=== PATIENT | male | born 1960 | race Native Hawaiian/Other Pacific Islander ===

== ENCOUNTER 2018-09-18 15:10 | Outpatient (CLI) | payer OTHER ==
--- NOTE | 2018-09-18 15:55 | ULT ---
Venous duplex sonogram left upper extremity HISTORY: Left arm pain and edema. FINDINGS: The left internal jugular and subclavian veins were evaluated along with the subclavian, Br achial, axillary, cephalic, and basilic veins. There is good color and spectral Doppler flow. No internal thrombus. IMPRESSION: No sonographic evidence of DVT within the left upper extremity.
== END 2018-09-18 15:11 | disposition home or self-care (01) ==
LOC: SCSULT 15:10
PROVIDERS: ATTEND Family Medicine
DX: R60.0 Localized edema (principal)

== ENCOUNTER 2018-10-15 07:55 | Outpatient (CLI) | payer OTHER ==
--- NOTE | 2018-10-15 10:54 | MRI ---
MRI OF THE LEFT UPPER EXTREMITY WITH AND WITHOUT CONTRAST: INDICATION: A 58-year-old male with left upper extremity swelling. TECHNIQUE: Multiplanar, multisequence MRI images were obtained of the left arm with and without contrast. 20 cc of MultiHance was utilized for the exam. Comparisons are made with a venous ultrasound of left uppe r extremity 09/18/2018. FINDINGS: As seen on the left upper extremity Doppler venous ultrasound, there is extensive subcutaneous edema of the left upper torso as well as the left upper extremity. There is some mild enhancement of the s kin and subcutaneous tissues indicative of some underlying inflammation. This can be seen in longsta nding lymphedema, but it can also be seen with cellulitis. Some mild muscular edema is seen within t he region of the teres major as well as portions of the triceps, deltoid, and rotator cuff musculatur e. There is also some mild edema present within the latissimus dorsi. No visible adenopathy is evid ent within the left axillary fossa. No definite mass is noted along the course of the left upper ext remity vasculature. No definite caliber change is evident involving the subclavian, left axillary ve ins to suggest extrinsic compression. The bone marrow signal intensity of the left humerus and left shoulder girdle appears within normal limits. IMPRESSION: Nonspecific subcutaneous edema seen diffusely involving the distal left arm as well as portions of th e left upper torso. There is some mild enhancement which can be seen with longstanding lymphedema bu t also cellulitis. Central venous obstructing process cannot be entirely excluded. The patient may benefit from further evaluation with a CT venogram of the left shoulder to evaluate for central venou s stenosis. Conventional venogram may also be helpful to exclude the presence of a central venous ob struction. Would recommend also correlation with any symptoms and signs of infection of the left upp er extremity. POS: CET
== END 2018-10-15 07:56 | disposition home or self-care (01) ==
LOC: MRI 07:55
PROVIDERS: ATTEND Family Medicine
DX: C22.0 Liver cell carcinoma (principal); R60.0 Localized edema; I89.0 Lymphedema, not elsewhere classified

== ENCOUNTER 2019-01-12 15:33 | Inpatient (IN) | payer OTHER ==
[2019-01-12 16:42] VITALS: BMI 28.8
[2019-01-12] MEDS ORDERED: traMADol HCl 50 MG TAB PO PRN (18:00)
[2019-01-12] MEDS ORDERED: B2 PO SCH (18:00)
[2019-01-12] MEDS ORDERED: B12 PO SCH (18:00)
[2019-01-12] MEDS ORDERED: VIT D3 PO SCH (18:00)
[2019-01-12] MEDS ORDERED: HumuLIN 70/30 (300 UNITS/3 ML VIAL) SC PRN (18:00)
[2019-01-12] MEDS ORDERED: B6 PO SCH (18:00)
[2019-01-12] MEDS ORDERED: FOLIC ACID PO SCH (18:00)
[2019-01-12 18:37] LABS: #Eosinphils 0.1 thou/uL (0.0-0.7); #Lymphocytes 1.3 thou/uL (1.20-3.40); #Monocytes 0.5 thou/uL (0.11-0.59); #Neutrophils 2.5 thou/uL (1.40-6.50); %Basophils 0.8 % (0.0-1.0); %Eosinophils 1.3 % (0.0-10.0); %Lymphocytes 29.8 % (21.0-51.0); %Monocytes 10.4 % (0.0-10.0); %Neutrophils 57.7 % (42.0-75.0); Hemoglobin 9.4 g/dL (14.0-18.0); Mean Corpuscular HGB CONC 34.3 g/dL (32.0-36.0); Mean Corpuscular Hemoglobin 29.2 pg (27.0-31.0); Mean Corpuscular Volume 85.2 fL (78.0-98.0); Mean Platelet Volume 6.6 fL (7.4-10.4); Platelet Count 227 thou/uL (130-400); RBC Distribution Width 12.3 % (11.5-14.5); White Blood Cell (WBC) Count 4.4 thou/uL (4.8-10.8)
[2019-01-12 18:44] LABS: Hemoglobin A1c 5.8 % (4.0-6.0)
[2019-01-12 18:58] LABS: ALT (SGPT) 9 U/L (8-55); AST (SGOT) 16 U/L (5-34); Albumin 3.3 g/dL (3.5-5.0); Alkaline Phosphatase 62 U/L (40-150); Anion Gap 11 mmol/L (10-20); BUN (Urea Nitrogen) 73 mg/dL (8.4-25.7); Bilirubin, Total 0.6 mg/dL (0.2-1.2); Calc. Creatinine Clearance 20 mL/min (70-130); Calcium 8.6 mg/dL (7.8-10.44); Carbon Dioxide 26 mmol/L (22-29); Chloride 105 mmol/L (98-107); Estimated GFR-MDRD 12; Globulin 2.4 g/dL (2.4-3.5); Glucose 127 mg/dL (70-105); Phosphorus 4.2 mg/dL (2.3-4.7); Potassium 4.3 mmol/L (3.5-5.1); Protein, Total 5.7 g/dL (6.0-8.3); Sodium 138 mmol/L (136-145)
[2019-01-12 19:15] LABS: Bacteria/HPF None Seen HPF (None Seen); Bilirubin Negative (Negative); Blood, Urine 1+ (Negative); Clarity Clear (Clear); Glucose, Urine (Dipstick) 100 mg/dL (Negative); Leukocyte Negative Leu/uL (Negative); Nitrite Negative (Negative); Protein, Urine (Dipstick) 600 mg/dL (Neg-Trace); RBC/HPF 0-3 HPF (0-3); Squamous Epithelial 0-3 HPF (0-3); Urobilinogen Normal mg/dL (Less than 2)
[2019-01-12 19:19] LABS: HBCM Index 0.11 S/CO (0-0.79); HBSAg Index 0.48 S/CO (0-0.99); HIV (1/2) Antibody/Antigen Non-Reactive (NonReactive); HIV 1/2 INDEX 0.31 S/CO (<1.00); Hep A IgM AB Non-Reactive (NonReactive); Hep A IgM S/CO 0.34 S/CO (0-0.79); Hep B Surf Ag Non-Reactive S/CO (NonReactive); Hepatitis B Core IgM Abs Non-Reactive (NonReactive)
[2019-01-12 19:20] LABS: Hep C IgG Ab Reflex HepC Qnt (NonReactive); Hep C Index 12.54 S/CO (0-0.79)
[2019-01-12 19:35] LABS: Creatinine, Urine 113.24 mg/dL (63-166)
--- NOTE | 2019-01-12 20:10 | HP ---
CHIEF COMPLAINT: Uremia, worsened kidney failure. HISTORY OF PRESENT ILLNESS: This is a 59-year-old gentleman with a history of hepatocellular carcinoma; cirrhosis of the liver, status post liver transplant, who has been on anti-rejection medications and developed worsening kidney failure. He has been followed by Dr. Noel. He has been developing worsening edema including lymphedema of his left arm, edema of bilateral lower extremities, worsening uremia with his BUN rising to causing increased fatigue and weakness. He was recently seen by Dr. Noel, who then recommended initiation of hemodialysis. As of note, he saw his oncologist recently, who then discontinued one of the medications and has a risk of renal failure. The patient denies chest pain. Denies shortness of breath. Anxious to get things resolved and his kidneys improved. PAST MEDICAL HISTORY: 1. Chronic hepatitis C with resultant hepatocellular carcinoma, cirrhosis, and now status post liver transplant. 2. Type 2 diabetes. 3. Hyperlipidemia. 4. Hypertension. 5. Mass in his right lung. 6. New onset lymphedema of his left upper extremity. 7. End-stage renal disease with uremia. MEDICATIONS: Include: 1. Amlodipine 10 mg daily. 2. Insulin 70/30 p.r.n. hyperglycemia. 3. Metoprolol 25 mg daily. 4. Vitamin D. 5. Folic acid. 6. B vitamins. 7. Magnesium oxide 200 mg b.i.d. 8. Mycophenolate 500 mg b.i.d. 9. Epclusa 400 mg and 100 mg daily. 10. Pravachol 20 mg daily. 11. Tacrolimus 1 mg in the evening and 0.5 mg in the morning. 12. Tramadol p.r.n. pain. ALLERGIES: NO KNOWN DRUG ALLERGIES. PAST SURGICAL HISTORY: Cardiac catheterization in 2016. Liver cancer surgery in June 2015. Liver transplant at [facility] in November 2017. SOCIAL HISTORY: Quit smoking in 2014. No alcohol. No drug use. He is with children. Disabled at this time. FAMILY HISTORY: Father with heart disease and hypertension. Mother with diabetes and hypertension. REVIEW OF SYSTEMS: As per the history of present illness. GENERAL: He admits to increased weakness and fatigue. HEENT: No headache, visual, or hearing changes. CARDIAC: No chest pain, shortness of breath, or palpitations. PULMONARY: Lung mass of unknown etiology at this point. Workup is in progress. No cough. No hemoptysis. GI: As per the history of present illness. No nausea or vomiting. : No dysuria or hematuria. NEUROLOGIC: Positive weakness. No seizures or syncope. PHYSICAL EXAMINATION: VITAL SIGNS: Temperature 98.0, pulse of 57, respirations 16, blood pressure 172/75, pulse ox is 98% on room air. GENERAL: He is awake and alert. HEENT: No jaundice. Mucosa is moist. NECK: Supple. No JVD, adenopathy, or bruits. HEART: Regular rate and rhythm. LUNGS: Clear. ABDOMEN: Soft. No hepatosplenomegaly. EXTREMITIES: 1 to 2+ edema in bilateral lower extremities. 3+ edema in left arm. No tenderness. No redness. NEUROLOGIC: Cranial nerves 2 through 12 are grossly intact. Sensation is intact bilaterally. LABORATORY DATA: Pending. Upper extremity MRI in October 2018 revealed edema, no venous obstructive process. Venogram was normal as well in September 2018. Marking ultrasound is pending. ASSESSMENT AND PLAN: This is a 59-year-old gentleman with history of chronic hepatitis C with resultant hepatocellular carcinoma and cirrhosis and now status post liver transplant on anti-rejection medications resulting in end-stage renal failure. 1. End-stage renal failure. Appreciate Dr. Noel. The patient to have a catheter and possible fistula placed tomorrow to initiate dialysis as managed by Dr. Noel. 2. Status post liver transplant, on anti-rejection medicines as per his liver doctors. 3. Hypertension. We will continue his usual medications and start hydralazine p.r.n. 4. Type 2 diabetes. We will monitor. We will have on a diabetic diet and insulin sliding scale. 5. Hope for a short hospitalization. Job ID: [id number]
[2019-01-12] MEDS: Mycophenolate 250 MG CAP PO SCH (20:31)
[2019-01-12] MEDS: Pravastatin Sodium 20 MG TAB PO SCH (20:31)
[2019-01-12] MEDS: Tacrolimus 1 MG CAP PO SCH (20:32)
[2019-01-12] MEDS: Magnesium Oxide 400 MG TAB PO SCH (20:32)
--- NOTE | 2019-01-12 23:04 | ULT ---
BILATERAL UPPER EXTREMITY VEIN MAPPING: History: Evaluation for dialysis access. Endstage renal disease. RIGHT UPPER EXTREMITY BRACHIAL ARTERY: 5.7 mm RADIAL ARTERY: 2.4 mm ULNAR ARTERY: 1.3 mm CEPHALIC VEIN Proximal Arm: 1.4 mm Mid Arm: 1.3 mm Distal Arm: 1.3 mm Antecubital Fossa: 2.5 mm Proximal Forearm: 1.1 mm Mid Forearm: 1.0 mm Distal Forearm: 1.2 mm BASILIC VEIN Proximal Arm: 1.0 mm Mid Arm: 1.6 mm Distal Arm: 1.4 mm Antecubital Fossa: 2.0 mm Proximal Forearm: not seen Mid Forearm: not seen Distal Forearm: not seen LEFT UPPER EXTREMITY BRACHIAL ARTERY: 5.9 mm RADIAL ARTERY: 2.3 mm ULNAR ARTERY: 2.1 mm CEPHALIC VEIN Proximal Arm: 2.2 mm Mid Arm: 1.5 mm Distal Arm: 1.1 mm Antecubital Fossa: 1.8 mm Proximal Forearm: 1.1 mm Mid Forearm: 0.7 mm Distal Forearm: 0.8 mm BASILIC VEIN Proximal Arm: 2.3 mm Mid Arm: 2.5 mm Distal Arm: 2.7 mm Antecubital Fossa: 2.1 mm Proximal Forearm: 1.6 mm Mid Forearm: 1.8 mm Distal Forearm: 1.1 mm IMPRESSION: Vein mapping as described above. POS: CLAUDIO
[2019-01-13] MEDS: hydrALAZINE 20 MG/ML VIAL SLOW IVP PRN (04:10)
--- NOTE | 2019-01-13 08:36 | PRG ---
DATE OF SERVICE: 01/13/2019 SUBJECTIVE: The patient continues to feel well. Denies chest pain or shortness of breath. No nausea or vomiting. Continues to feel weak, but no falls. OBJECTIVE: VITAL SIGNS: Temperature of 97.9, pulse of 65, respirations of 20, blood pressure is elevated at 172/78, pulse ox of 96% on room air. GENERAL: He is awake and alert, in no acute distress. HEENT: Speech is clear. Mucosa is moist. NECK: Supple. No JVD. HEART: Regular rate and rhythm. LUNGS: Clear. ABDOMEN: Soft. EXTREMITIES: Continues with 2+ lower extremity edema and left upper arm edema. LABORATORY DATA: Reviewed. Hemoglobin and hematocrit 9.4 and 27.3. Kidney function with a BUN of 73, creatinine of 5.13 with a GFR of 12, a serum glucose of 127. Accu-Cheks 112, albumin of 3.3. ASSESSMENT/PLAN: 1. This is a 59-year-old gentleman with a history of chronic hepatitis C with hepatocellular carcinoma and cirrhosis, status post liver transplant, now with end-stage renal failure, likely secondary to one of his immunosuppressant medications that has been discontinued at this time. Plan for a catheter placement today by Surgery to initiate hemodialysis. Outpatient dialysis is being arranged at this time. 2. Hypertension. We will increase his medications for better control. 3. Type 2 diabetes. Continue p.r.n. insulin. Job ID: [id number]
[2019-01-13] MEDS ORDERED: Tuberculin PPD 0.1 ML VIAL I-DERMAL SCH (09:00)
[2019-01-13] MEDS ORDERED: ZORTRESS 0.5 MG PO SCH (09:00)
[2019-01-13] MEDS: Magnesium Oxide 400 MG TAB PO SCH ×2 (09:16→22:54)
[2019-01-13] MEDS: Amlodipine 10 MG TAB PO SCH (09:16)
[2019-01-13] MEDS: Mycophenolate 250 MG CAP PO SCH ×2 (09:16→22:54)
[2019-01-13] MEDS: Tacrolimus 0.5 MG CAP PO SCH (09:16)
[2019-01-13 12:59] LABS: HBSAB Concentration 3.72 mIU/mL; HBSAg Index 0.31 S/CO (0-0.99); Hep B Core Total Ab Non-Reactive (NonReactive); Hep B Core Total Index 0.04 S/CO (0-0.79); Hep B Surf AB Non-Reactive (NonReactive); Hep B Surf Ag Non-Reactive S/CO (NonReactive)
[2019-01-13 13:34] LABS: Hep C IgG Ab Reflex HepC Qnt (NonReactive); Hep C Index 12.95 S/CO (0-0.79)
[2019-01-13 13:53] LABS: HBSAB Concentration 3.72 mIU/mL; Hep B Surf AB NonReactive (NonReactive)
[2019-01-13 13:55] LABS: Hep B Core Total Ab NonReactive (NonReactive); Hep B Core Total Index 0.04 S/CO (0-0.79)
[2019-01-13] MEDS ORDERED: Vancomycin HCl 1 GM in Premix Bag 1 BAG IVPB SCH (15:45)
[2019-01-13] MEDS ORDERED: CEFAZOLIN 2 GM, IV Admixture Fee-Chemo 1 UNITS in Sodium Chloride 0.9% 100 ML IVPB SCH (15:45)
[2019-01-13] MEDS ORDERED: Prevnar 13-Val Conj/PF 0.5 ML SYRINGE IM ONE (17:15)
[2019-01-13] MEDS ORDERED: Lidocaine 2% Jelly 5 ML TUBE ONE (20:19)
[2019-01-13] MEDS ORDERED: Propofol 500 MG/50 ML VIAL ONE (20:19)
[2019-01-13] MEDS ORDERED: Fentanyl 100 MCG/2 ML VIAL ONE ×2 (20:19→22:08)
[2019-01-13] MEDS ORDERED: Bupivacaine/Epinephrine 0.25% 30 ML VIAL ONE (20:28)
[2019-01-13] MEDS ORDERED: Lidocaine 2% PF 5 ML VIAL ONE (20:28)
[2019-01-13] MEDS ORDERED: Sodium Chloride 0.9% 30 ML ONE (20:28)
[2019-01-13] MEDS ORDERED: Heparin 10,000 UNITS/1 ML VIAL ONE (20:28)
[2019-01-13] MEDS ORDERED: ceFAZolin Sodium (SDC) 2 GM/100 ML BAG ONE (20:29)
[2019-01-13] MEDS ORDERED: PROPOFOL 200 MG/20 ML VIAL ONE (21:00)
[2019-01-13] MEDS ORDERED: Promethazine HCl 25 MG/ML VIAL IM PRN (21:34)
[2019-01-13] MEDS ORDERED: Promethazine HCl 25 MG/ML VIAL SLOW IVP PRN (21:34)
[2019-01-13] MEDS ORDERED: Ondansetron HCl/PF 4 MG/2 ML Vial IVP PRN (21:34)
--- NOTE | 2019-01-13 22:27 | RAD ---
XR Chest 1 View HISTORY: Dialysis catheter placement COMPARISON: None. FINDINGS: Heart size appears slightly enlarged. Moderate bilateral pleural effusions and bibasilar toribio ng changes are seen. A right-sided HemoSplit catheter is been placed. Catheter overlies the superior vena cava. No signs of pneumothorax. IMPRESSION: 1. Cardiomegaly with moderate bilateral pleural effusions and bibasilar lung changes consistent with atelectasis or infiltrate 2. Right-sided HemoSplit catheter placement no signs of pneumothorax.
[2019-01-13] MEDS: Pravastatin Sodium 20 MG TAB PO SCH (22:55)
[2019-01-13] MEDS: Tacrolimus 1 MG CAP PO SCH (22:55)
[2019-01-13] MEDS: EPCLUSA PO SCH (22:55)
--- NOTE | 2019-01-13 22:58 | EKG ---
Test Reason : Blood Pressure : / mmHG Vent. Rate : 059 BPM Atrial Rate : 059 BPM P-R Int : 236 ms QRS Dur : 100 ms QT Int : 460 ms P-R-T Axes : 054 008 011 degrees QTc Int : 455 ms Sinus bradycardia with 1st degree A-V block Otherwise normal ECG No previous ECGs available Confirmed by Romeo PACHECO ([id number]) on 01/13/2019 10:58:12 PM Referred By: KT Confirmed By:Romeo PACHECO
[2019-01-14] MEDS: Tacrolimus 0.5 MG CAP PO SCH (09:26)
[2019-01-14] MEDS: Amlodipine 10 MG TAB PO SCH (09:27)
[2019-01-14] MEDS: Magnesium Oxide 400 MG TAB PO SCH ×2 (09:27→20:17)
[2019-01-14] MEDS: Mycophenolate 250 MG CAP PO SCH ×2 (09:27→20:21)
--- NOTE | 2019-01-14 09:28 | CON ---
DATE OF CONSULTATION: REASON FOR CONSULT: Renal failure with need for dialysis access. HISTORY OF PRESENT ILLNESS: Mr. Sánchez is a 59-year-old man with fairly acute onset of renal failure. He states that over 3 months his GFR went from 50% to under 10. He states that Dr. Noel thinks this was due to a medication he was taking, this medication has been stopped, but his renal failure has gotten bad enough that he now requires dialysis. He has never been on dialysis before. He is on multiple medications for his liver transplant, but is otherwise in fairly good health. PAST MEDICAL HISTORY: Hepatitis C leading to cirrhosis and hepatocellular cancer and eventually liver transplant, type 2 diabetes, hyperlipidemia, hypertension, lymphedema of the left upper extremity, and new onset end-stage renal disease. OUTPATIENT MEDICATIONS: Include: 1. Amlodipine. 2. 70/30 insulin. 3. Metoprolol. 4. Vitamin D. 5. Folate. 6. Magnesium. 7. Mycophenolate. 8. Epclusa. 9. Pravachol. 10. Tacrolimus. 11. Tramadol. ALLERGIES: HE HAS NO KNOWN DRUG ALLERGIES. PAST SURGICAL HISTORY: Include a liver resection in 2016 and liver transplant in 2018. He had a heart catheterization in 2017. SOCIAL HISTORY: Former smoker. No history of alcohol or drug use. FAMILY HISTORY: Noncontributory. No other history of renal failure. REVIEW OF SYSTEMS: Ten system review of systems is negative except per HPI and the following. He does have some weakness and fatigue, but denies any shortness of breath or new swelling in his legs. He has chronic swelling in his left arm related to his lymphedema and he has a lymphedema pump, which has been ordered and should be arriving soon. PHYSICAL EXAMINATION: VITAL SIGNS: The patient has been afebrile since his admission, heart rate 58, respirations 20, 96% saturated, blood pressure 187/82. GENERAL: Reveals a healthy-appearing man, in no acute distress. He is not jaundiced or icteric. He is not flushed or toxic. HEENT: Unremarkable. NECK: Supple without lymphadenopathy or thyroid nodules. HEART: Regular in its rate and rhythm without murmurs, rubs, or gallops. LUNGS: Clear to auscultation bilaterally without crackles. ABDOMEN: Soft, nontender, nondistended. He has a healed chevron incision with no palpable masses or hernias. EXTREMITIES: Warm and well perfused. He has [id number] lymphedema of the left arm and no palpable veins on that side. On the right arm, he has thready veins in the antecubital fossa. No palpable forearm veins. Normal filling from both arteries on Dieter's testing. Vein mapping shows small veins bilaterally, he is a good caliber basilic vein in the left upper arm, cephalic vein on the right ranges from 1 mm to 1.4 mm in size and basilic ranges from 1-2 mm in size. ASSESSMENT: Subacute renal failure thought to be related to a medication, which has been discontinued. 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 He does not have any suitable veins in the right arm for primary arteriovenous fistula, and left arm is not appropriate for fistula due to lymphedema and we will plan on a tunneled hemodialysis catheter for now. If his renal function does not improve over the next few weeks, then we will plan on a possible arteriovenous fistula, but likely arteriovenous graft of the right arm. Inherent risks of tunneled dialysis catheter placement were discussed with the patient. These include, but are not limited to, bleeding, infection, risks of anesthesia, hemothorax, pneumothorax, and DVT. He understands and accepts these risks and wishes to proceed and has been for the operating room. 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 Job ID: [id number]
[2019-01-14] MEDS: HYDROcodone/Acetaminophen 5/325 mg Tablet PO PRN ×2 (10:22→20:21)
--- NOTE | 2019-01-14 10:28 | PDOC.OP ---
Operative Note - Operative Note Operative Note: DATE OF PROCEDURE: 01/13/2019 PROCEDURE: Placement of right internal jugular tunneled hemodialysis catheter with ultrasound and fluoroscopic guidance. SURGEON: Candy Crump M.D. PREOPERATIVE DIAGNOSIS: Acute/Chronic renal failure. POSTOPERATIVE DIAGNOSIS: Acute/Chronic renal failure. HISTORY: Patient with recently worsening renal failure. A tunneled hemodialysis catheter for initiation of dialysis has been requested by the patients justice professor. PROCEDURE: After informed consent was obtained and appropriate preoperative antibiotics were administered, the patient was taken to the Operating Room, placed in the supine position and monitored anesthesia care was administered. The neck and chest were prepped and draped in a standard sterile fashion and the patient placed in Trendelenburg position. A sterile ultrasound probe was used to identify the patent compressible right IJ vein which was accessed under direct ultrasound guidance. A wire was threaded through the needle and confirmed by ultrasound to be within the patent compressible vessel with the tip in the vena cava by fluoroscopy. Local anesthesia was infused to the skin and subcutaneous tissues of the right neck and chest. An infraclavicular incision was made and a catheter tunneled from the infraclavicular to the right IJ access site. The right IJ was sequentially dilated over the wire following which a dilator and sheath were placed over the wire and the dilator and wire removed leaving the sheath in place. The catheter was tunneled through the sheath which was then split and removed leaving the catheter in place. This was confirmed by fluoroscopy to be in good position in the superior vena cava with no kinking of the course of the catheter. Both ports easily aspirated dark venous nonpulsatile blood and easily flushed without resistance. Heparin was instilled to the quantity specified on the hub, and the hub was secured to the skin with 3-0 nylon sutures. The skin incision at the neck was closed in two layers with 4-0 Monocryl suture and Dermabond dressings were placed. The skin at the exit site was snugged up around the catheter with 4-0 Monocryl suture and Dermabond was placed there as well. Once the Dermabond was dry, a Biopatch and Tegaderm dressing was placed at the exit site. The patient was taken to Recovery in good condition. Estimated blood loss was minimal. There were no complications. There were no specimens.
[2019-01-14] MEDS ORDERED: Heparin 10,000 UNITS/ 10 ML VIAL ONE (11:11)
--- NOTE | 2019-01-14 17:29 | PDOC.GSPN ---
Surgery Progress Note: Subj - Subjective Narrative: Patient tolerated one hour of dialysis today. His catheter works well. He is going to follow up with me in my clinic in about a month. If his renal failure is not improving we will schedule him for a right AV fistula versus more likely graft. Surgery Progress Note: Obj - Vital signs Vital signs: Vital Signs - Most Recent Temp Pulse Resp BP Pulse Ox 97.8 F 59 L 20 168/74 H 98 01/14/19 16:21 01/14/19 16:21 01/14/19 16:21 01/14/19 16:21 01/14/19 16:21 Surgery Progress Note: Results - Labs Result Diagrams: 01/12/19 18:28 01/12/19 18:28 Lab results: Laboratory Results - last 24 hr 01/14/19 01/14/19 01/14/19 04:20 11:09 15:30 POC Glucose 168 H 163 H 154 H
--- NOTE | 2019-01-14 18:20 | PRG ---
DATE OF SERVICE: 01/14/2019 Postoperative day #0 for placement of right IJ hemodialysis catheter. SUBJECTIVE: The patient is feeling fine. He complains of some pain at the catheter site without getting relief from the tramadol. He denies chest pain, shortness of breath, or palpitations. He is undergoing dialysis at the time of his visit and tolerating it well. No fevers or chills. No nausea or vomiting. OBJECTIVE: VITAL SIGNS: Temperature 97.8, pulse of 59, respirations 20, blood pressure 168/74. GENERAL: He is awake and alert, in no acute distress. Speech is clear. NECK: Supple. CHEST: With catheter in place. No redness. No discharge. No sign of infection. HEART: Regular rate and rhythm. LUNGS: Clear. EXTREMITIES: With edema. LABORATORY DATA: Accu-Cheks 154, 163, 168, and 120. ASSESSMENT AND PLAN: This is a 59-year-old gentleman with a history of chronic hepatitis C and hepatocellular carcinoma with cirrhosis, now status post liver transplant, who developed end-stage renal failure secondary to his immunosuppressant medication. 1. End-stage renal disease. His immunosuppressant has been discontinued, which was thought to be the source of his renal failure. He is now status post catheter placement for hemodialysis, and the hemodialysis has been tolerated. Awaiting outpatient dialysis placement for him to be discharged home. 2. Type 2 diabetes. We will continue p.r.n. insulin. 3. Hypertension. Continue to monitor closely and continue medications as per Nephrology. 4. Disposition: Home once his outpatient dialysis has been arranged. Job ID: [id number]
[2019-01-14] MEDS: EPCLUSA PO SCH (20:18)
[2019-01-14] MEDS: Pravastatin Sodium 20 MG TAB PO SCH (20:18)
[2019-01-14] MEDS: Tacrolimus 1 MG CAP PO SCH (20:19)
[2019-01-15] MEDS: hydrALAZINE 20 MG/ML VIAL SLOW IVP PRN (04:38)
[2019-01-15] MEDS: Magnesium Oxide 400 MG TAB PO SCH ×3 (09:32→19:56)
[2019-01-15] MEDS: hydrALAZINE 25 MG TAB PO SCH ×3 (09:32→19:56)
[2019-01-15] MEDS: Amlodipine 10 MG TAB PO SCH ×2 (09:32→10:33)
[2019-01-15] MEDS: Mycophenolate 250 MG CAP PO SCH ×3 (09:32→19:58)
[2019-01-15] MEDS: READ PPD TEST SITE PO SCH (09:33)
[2019-01-15] MEDS: Tacrolimus 0.5 MG CAP PO SCH ×2 (09:33→10:34)
--- NOTE | 2019-01-15 10:19 | PRG ---
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 He is now waiting possible kidney transplant. He also has a history of chronic hepatitis C and hepatocellular carcinoma with cirrhosis, which lead to his liver transplant. The patient, this morning, is doing fine. No complaints. He is presently receiving hemodialysis. OBJECTIVE: VITAL SIGNS: Temperature 97.5, pulse 62, blood pressure 197/77, respirations 15, and pulse ox 98%. HEART: Regular rate and rhythm. LUNGS: Clear. ABDOMEN: Soft. EXTREMITIES: With trace edema. LABORATORY DATA: Blood sugar 154, 123, 105. ASSESSMENT: 1. End-stage renal disease secondary to immunosuppressants from liver transplant. 2. Liver failure secondary to hepatitis C and hepatocellular carcinoma with cirrhosis. 3. Diabetes. 4. Hypertension, uncontrolled. PLAN: 1. Continue hemodialysis. 2. Placement at [facility] in [facility] has been acquired. 3. We will add hydralazine 25 mg p.o. b.i.d. to help control blood pressure for now. 4. The patient is from the [facility]. He is trying to complete his major medical treatment before returning home to the [facility] in the [facility]. Instantly, I attended high school in 1977 at [employer] on the [place] of [facility] with Mr. Sánchez. Hopefully, his medical treatments will progress well. Job ID: [id number]
[2019-01-15 15:10] LABS: Hep C PCR-Quant HCV Not Detected IU/mL (.)
[2019-01-15] MEDS ORDERED: Insulin Regular 300 UNITS/3 ML VIAL SC PRN (17:46)
[2019-01-15] MEDS ORDERED: Dextrose 5% in Water 1,000 ML IV PRN (17:46)
[2019-01-15] MEDS ORDERED: Dextrose 50% Abboject 50 ML SYRINGE IVP PRN (17:46)
[2019-01-15] MEDS ORDERED: Clopidogrel Bisulfate 75 MG TAB ONE (19:30)
[2019-01-15] MEDS: Pravastatin Sodium 20 MG TAB PO SCH (19:57)
[2019-01-15] MEDS: Tacrolimus 1 MG CAP PO SCH (19:58)
[2019-01-15] MEDS: EPCLUSA PO SCH (19:59)
[2019-01-16 07:28] LABS: #Eosinphils 0.1 thou/uL (0.0-0.7); #Lymphocytes 1.1 thou/uL (1.20-3.40); #Monocytes 0.4 thou/uL (0.11-0.59); #Neutrophils 2.5 thou/uL (1.40-6.50); %Basophils 0.9 % (0.0-1.0); %Eosinophils 1.5 % (0.0-10.0); %Lymphocytes 27.2 % (21.0-51.0); %Monocytes 9.4 % (0.0-10.0); Hemoglobin 8.8 g/dL (14.0-18.0); Mean Corpuscular HGB CONC 34.4 g/dL (32.0-36.0); Mean Corpuscular Hemoglobin 29.4 pg (27.0-31.0); Mean Corpuscular Volume 85.4 fL (78.0-98.0); Mean Platelet Volume 6.8 fL (7.4-10.4); Platelet Count 210 thou/uL (130-400); RBC Distribution Width 12.5 % (11.5-14.5); Red Blood Cell (RBC) Count 2.98 mill/uL (4.70-6.10); White Blood Cell (WBC) Count 4.1 thou/uL (4.8-10.8)
[2019-01-16 07:45] LABS: Albumin 2.9 g/dL (3.5-5.0); Anion Gap 10 mmol/L (10-20); BUN (Urea Nitrogen) 43 mg/dL (8.4-25.7); BUN/Creatinine Ratio 11.35; Calc. Creatinine Clearance 27 mL/min (70-130); Calcium 8.4 mg/dL (7.8-10.44); Carbon Dioxide 29 mmol/L (22-29); Chloride 105 mmol/L (98-107); Estimated GFR-MDRD 16; Glucose 129 mg/dL (70-105); Potassium 4.1 mmol/L (3.5-5.1); Sodium 140 mmol/L (136-145)
--- NOTE | 2019-01-16 08:46 | PRG ---
DATE OF SERVICE: 01/16/2019 SUBJECTIVE: The patient is doing well. Receiving dialysis this morning. Plan to discharge in the a.m. He is status post liver transplant with rejection of his kidneys from immunosuppressants. He is also now awaiting kidney transplant. He does have a history of chronic hepatitis C and hepatocellular carcinoma with cirrhosis. OBJECTIVE: VITAL SIGNS: Temperature 97.9, pulse 68, respirations 16, pulse ox 96%, and blood pressure 170/75. HEART: Regular rate and rhythm. LUNGS: Clear. ABDOMEN: Soft and nontender. EXTREMITIES: With trace edema. LABORATORY DATA: None. ASSESSMENT: 1. End-stage renal disease secondary to immunosuppressants from liver transplant. 2. Liver failure secondary to hepatitis C and hepatocellular carcinoma with cirrhosis. 3. Diabetes. 4. Hypertension. PLAN: 1. Continue hemodialysis. 2. Placement at [facility] in [facility] have been acquired. 3. We will increase hydralazine to 25 t.i.d. 4. Hopefully, he can be discharged in the a.m. and follow up with Dr. Mccain. Job ID: [id number]
[2019-01-16] MEDS: Tacrolimus 0.5 MG CAP PO SCH (10:53)
[2019-01-16] MEDS: Mycophenolate 250 MG CAP PO SCH ×2 (10:53→19:50)
[2019-01-16] MEDS: Magnesium Oxide 400 MG TAB PO SCH ×2 (10:54→19:53)
[2019-01-16] MEDS: hydrALAZINE 25 MG TAB PO SCH ×3 (10:54→19:50)
[2019-01-16] MEDS: Amlodipine 10 MG TAB PO SCH (10:54)
[2019-01-16] MEDS: READ PPD TEST SITE PO SCH (10:55)
[2019-01-16] MEDS ORDERED: Heparin 1,000 UNITS/ML VIAL ONE (11:11)
[2019-01-16] MEDS: Tacrolimus 1 MG CAP PO SCH (19:50)
[2019-01-16] MEDS: Pravastatin Sodium 20 MG TAB PO SCH (19:51)
[2019-01-16] MEDS: EPCLUSA PO SCH (19:53)
[2019-01-17] MEDS: hydrALAZINE 25 MG TAB PO SCH ×2 (08:04→14:27)
[2019-01-17] MEDS: Tacrolimus 0.5 MG CAP PO SCH ×2 (08:04→12:43)
[2019-01-17] MEDS: Amlodipine 10 MG TAB PO SCH (08:04)
[2019-01-17] MEDS: Magnesium Oxide 400 MG TAB PO SCH ×2 (08:04→12:43)
[2019-01-17] MEDS: Mycophenolate 250 MG CAP PO SCH ×2 (08:04→12:43)
[2019-01-17] MEDS ORDERED: Heparin 1,000 UNITS/ML VIAL ONE (11:11)
[2019-01-17 14:27] VITALS: BP 130/74; TEMP 97.5
== END 2019-01-17 15:24 | disposition home or self-care (01) | DRG 673 ==
LOC: T4-B 15:33
PROVIDERS: ADMIT Family Medicine; ATTEND Family Medicine
PROC: 0JHD3XZ Insertion of Tunneled Vascular Access Device into Right Upper Arm Subcutaneous Tissue and Fascia, Percutaneous Approach (ICD-10-PCS; principal; 2019-01-14)
PROC: 02HV33Z Insertion of Infusion Device into Superior Vena Cava, Percutaneous Approach (ICD-10-PCS; 2019-01-14)
PROC: B5181ZA Fluoroscopy of Superior Vena Cava using Low Osmolar Contrast, Guidance (ICD-10-PCS; 2019-01-14)
PROC: 5A1D70Z Performance of Urinary Filtration, Intermittent, Less than 6 Hours Per Day (ICD-10-PCS; 2019-01-14)
DX: I12.0 Hypertensive chronic kidney disease with stage 5 chronic kidney disease or end stage renal disease (principal); N18.6 End stage renal disease; Z94.4 Liver transplant status; N17.9 Acute kidney failure, unspecified; E78.5 Hyperlipidemia, unspecified; T45.1X5A Adverse effect of antineoplastic and immunosuppressive drugs, initial encounter; E11.22 Type 2 diabetes mellitus with diabetic chronic kidney disease; Z85.05 Personal history of malignant neoplasm of liver; Z95.5 Presence of coronary angioplasty implant and graft; Z87.891 Personal history of nicotine dependence; Z79.899 Other long term (current) drug therapy; Z79.4 Long term (current) use of insulin
CPT/HCPCS: 36415; 36416; 71045; 80053; 80069; 80074; 81001; 82570; 83036; 84100; 84156; 85025; 86580; 86704; 86706; 86803; 87340; 87389; 87522; 93005; 93010; 93970; C1752; C1769; G0365; J0360; J0690; J1644; J2001; J2704; J3010; J3370; J7507; J7517

== ENCOUNTER 2019-02-13 09:29 | Day surgery (SDC) | payer OTHER ==
[2019-02-12 13:29] VITALS: BMI 26.4
[2019-02-13 10:20] LABS: #Eosinphils 0.2 thou/uL (0.0-0.7); #Lymphocytes 1.1 thou/uL (1.20-3.40); #Monocytes 0.6 thou/uL (0.11-0.59); #Neutrophils 3.5 thou/uL (1.40-6.50); %Basophils 0.7 % (0.0-1.0); %Eosinophils 3.1 % (0.0-10.0); %Lymphocytes 20.9 % (21.0-51.0); %Monocytes 10.3 % (0.0-10.0); Mean Corpuscular HGB CONC 33.3 g/dL (32.0-36.0); Mean Corpuscular Hemoglobin 30.4 pg (27.0-31.0); Mean Corpuscular Volume 91.4 fL (78.0-98.0); Mean Platelet Volume 6.5 fL (7.4-10.4); Platelet Count 269 thou/uL (130-400); RBC Distribution Width 15.2 % (11.5-14.5); Red Blood Cell (RBC) Count 3.61 mill/uL (4.70-6.10); White Blood Cell (WBC) Count 5.4 thou/uL (4.8-10.8)
[2019-02-13 10:41] LABS: Anion Gap 12 mmol/L (10-20); BUN (Urea Nitrogen) 28 mg/dL (8.4-25.7); Calc. Creatinine Clearance 24 mL/min (70-130); Calcium 8.7 mg/dL (7.8-10.44); Carbon Dioxide 26 mmol/L (22-29); Chloride 104 mmol/L (98-107); Estimated GFR-MDRD 16; Glucose 94 mg/dL (70-105); Potassium 4.1 mmol/L (3.5-5.1); Sodium 138 mmol/L (136-145)
[2019-02-13] MEDS ORDERED: Heparin 5,000 UNITS/ML VIAL ONE (10:45)
[2019-02-13] MEDS ORDERED: Protamine Sulfate 50 MG/5 ML VIAL ONE (10:45)
[2019-02-13] MEDS ORDERED: Bupivacaine/Epinephrine 0.25% 30 ML VIAL ONE (10:45)
[2019-02-13] MEDS ORDERED: Lidocaine 2% PF 5 ML VIAL ONE (10:45)
[2019-02-13] MEDS ORDERED: Midazolam HCl 2 mg/2 ml Vial ONE ×2 (11:21→11:25)
[2019-02-13] MEDS ORDERED: Fentanyl 100 MCG/2 ML VIAL ONE ×2 (11:21→11:25)
[2019-02-13] MEDS ORDERED: Bupivacaine HCl 0.5%/Epinephrine 1:200,000/PF 30 ml Vial ONE (14:22)
[2019-02-13] MEDS ORDERED: Heparin 10,000 UNITS/ 10 ML VIAL ONE ×2 (14:49→14:57)
[2019-02-13] MEDS ORDERED: PROPOFOL 200 MG/20 ML VIAL ONE (14:57)
--- NOTE | 2019-02-16 10:44 | OP ---
DATE OF PROCEDURE: 02/13/2019 PROCEDURE: Right brachiocephalic arteriovenous fistula. AMMUNITION OFFICER: Asad Edwards, MS-3 HISTORY OF PRESENT ILLNESS: Mr. Sánchez is a 59-year-old man with end-stage renal failure, currently undergoing dialysis via a tunneled hemodialysis catheter. 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 He has severe lymphedema of the left arm, but only his right arm is suitable for access. DESCRIPTION OF PROCEDURE: After informed consent was obtained and appropriate preoperative antibiotics were administered, the patient was taken to the operating room. He was placed in supine position, and monitored anesthesia care was administered. He was prepped and draped in standard sterile fashion, and adequacy of his preoperative block confirmed at the level of the wrist and the antecubital fossa. He had a small but palpable cephalic vein at the level of the wrist. An incision was made between this and the palpable radial artery, but the vein was sclerotic in appearance and not suitable for fistula use. Therefore, attention was turned to the antecubital fossa. The antecubital vein was identified and marked on the skin. Incision was made between this and the brachial pulse. Dissection was carried out to the vein, which was of good caliber and quality. This was dissected free distally to a length that allowed it to easily come down to the area of the artery. This was then ligated and divided distally and spatulated and interrogated with cardiac dilators. The cardiac dilators were passed up the cephalic branch, but not the basilic. There was no apparent connection between the antecubital fossa and the basilic vein. Up to a 4 mm dilator was able to be passed without difficulty. The vein was flushed with heparinized saline and clamped with a bulldog clamp, and the brachial artery was dissected free circumferentially. This was of good caliber and quality. Heparin was administered systemically and allowed to circulate for 3 minutes. Following which, the artery was clamped proximally and distally. An anterior arteriotomy was created with an 11 blade and extended with Rockwell scissors. An end-to-side anastomosis was created with a running 6-0 Prolene suture with excellent technical result. Prior to tying down the anastomosis, the inflow was released flushing the anastomosis. Flow was then restored first through the fistula and then through the distal artery. The wound was examined for hemostasis, which was excellent. Surgicel was placed around the anastomosis as precaution, and the subcutaneous tissues of both sites were closed with a running 3-0 Monocryl suture. Following which, the skin was closed with 4-0 running subcuticular Monocryl suture. Dermabond dressings were placed, and once this was dry, an Humza wrap was placed. Estimated blood loss was minimal. There were no complications. There were no specimens. Job ID: [id number]
== END 2019-02-13 15:00 | disposition home or self-care (01) ==
LOC: SDC 09:29
PROVIDERS: ATTEND Surgery
PROC: 03170ZD Bypass Right Brachial Artery to Upper Arm Vein, Open Approach (ICD-10-PCS; principal; 2019-02-13)
DX: I12.0 Hypertensive chronic kidney disease with stage 5 chronic kidney disease or end stage renal disease (principal); E11.22 Type 2 diabetes mellitus with diabetic chronic kidney disease; N18.6 End stage renal disease; E78.5 Hyperlipidemia, unspecified; Z87.891 Personal history of nicotine dependence; Z79.4 Long term (current) use of insulin; Z79.899 Other long term (current) drug therapy; Z94.4 Liver transplant status; Z99.2 Dependence on renal dialysis
CPT/HCPCS: 36416; 80048; 85025; J0670; J0690; J1644; J2001; J2250; J2704; J2720; J3010

== ENCOUNTER 2019-07-22 09:32 | Outpatient (CLI) | payer OTHER ==
--- NOTE | 2019-07-22 10:36 | MRI ---
MRI of thecervical spine: 07/22/2019 COMPARISON:None available HISTORY:Bilateral hand numbness, upper extremity radiculopathy TECHNIQUE: Multiplanar multisequence MR imaging of thecervical spine without contrast Findings:Sagittal STIR imaging demonstrates no focal area of osseous marrow edema. Detailed assessmen t of the cervical spine is somewhat limited secondary to motion artifact on all provided pulse sequences. There is mild degenerative change at the atlantoaxial interspace. C2-3: Mild bilateral facet hypertrophy. Disc desiccation. No central canal or neural foraminal stenos is. C3-4: Mild bilateral facet hypertrophy. Disc desiccation and minimal disc bulge with no significant c entral canal or neural foraminal stenosis. C4-5: There is disc space narrowing with disc desiccation and disc bulge effacing the ventral thecal sac and abutting the ventral aspect of the cervical cord with a moderate degree of central canal stenosis. Bilateral facet and uncovertebral osteophyte formation. Moderate/severe right neural forami nal stenosis. Mild left neural foraminal stenosis. C5-6: Disc space narrowing with disc desiccation and disc bulge partially effacing the ventral thecal sac with a mild to moderate degree of central canal stenosis. Mild bilateral neural foraminal stenosis. Mild anterior osteophyte formation. C6-7: Disc space narrowing with degenerative endplate change and disc osteophyte complex partially ef facing the ventral thecal sac and causing a mild degree of central canal stenosis. Mild/moderate bilateral neural foraminal stenosis on the basis of facet and uncovertebral osteophyte formation. C7-T1: Bilateral facet hypertrophy with no significant central canal or neural foraminal stenosis. No focal area of abnormal signal intensity identified within the cervical cord. IMPRESSION:Cervical spine degenerative change as described above. Detailed assessment is limited on t he basis of motion artifact.
== END 2019-07-22 09:33 | disposition home or self-care (01) ==
LOC: SCSMRI 09:32
PROVIDERS: ATTEND Family Medicine
DX: M47.22 Other spondylosis with radiculopathy, cervical region (principal)
CPT/HCPCS: 72141

== ENCOUNTER 2022-04-14 17:48 | Observation (INO) | payer MEDICARE ==
[2022-04-14] MEDS ORDERED: Ondansetron PF 4 MG/2 ML Vial IVP PRN (20:05)
[2022-04-14] MEDS ORDERED: Bisacodyl 10 MG SUPP PR PRN (20:05)
[2022-04-14] MEDS ORDERED: Acetaminophen 325 MG TAB PO PRN (20:05)
[2022-04-14] MEDS ORDERED: Zolpidem Tartrate 5 MG TAB PO PRN (20:11)
[2022-04-14 20:47] LABS: Hemoglobin 6.9 g/dL (14.0-18.0); Mean Corpuscular HGB CONC 30.5 g/dL (32.0-36.0); Mean Corpuscular Hemoglobin 32.1 pg (27.0-31.0); Mean Platelet Volume 7.7 fL (7.4-10.4); Platelet Count 172 10x3/uL (130-400); RBC Distribution Width 15.1 % (11.5-14.5); Red Blood Cell (RBC) Count 2.13 mill/uL (4.70-6.10); White Blood Cell (WBC) Count 2.4 10x3/uL (4.8-10.8)
[2022-04-14] MEDS: hydrALAZINE 25 MG TAB PO SCH (20:47)
[2022-04-14] MEDS ORDERED: Famotidine 20 MG TAB PO SCH (21:00)
[2022-04-14] MEDS ORDERED: hydrALAZINE 25 MG TAB PO SCH (21:00)
[2022-04-14] MEDS: Tacrolimus 1 MG CAP PO SCH (21:27)
[2022-04-14] MEDS: Mycophenolate 250 MG CAP PO SCH (21:27)
[2022-04-14 21:34] VITALS: BMI 23.8
[2022-04-15 07:02] LABS: Iron 125 ug/dL (65-175); Iron Binding Capacity, Total 121 mcg/dL (261-462)
[2022-04-15 08:51] LABS: Hemoglobin 6.8 g/dL (14.0-18.0); Mean Corpuscular HGB CONC 31.6 g/dL (32.0-36.0); Mean Platelet Volume 7.9 fL (7.4-10.4); Platelet Count 151 10x3/uL (130-400); RBC Distribution Width 15.3 % (11.5-14.5); Red Blood Cell (RBC) Count 2.05 mill/uL (4.70-6.10); White Blood Cell (WBC) Count 2.1 10x3/uL (4.8-10.8)
[2022-04-15 08:52] LABS: Anisocytosis SLIGHT = 6-15 cells (100X) (0-5/hpf); Band 3 % (5-11); Eosinophils 2 % (0-10); Lymphocytes 21 % (21-51); MDiff Complete? YES; Monocytes 13 % (0-10); Neutrophil 61 % (42-75); Platelet Morphology Comment Appears Adequate; Schistocytes SLIGHT = 2-5 cells (100X) (0-1/hpf)
[2022-04-15] MEDS: hydrALAZINE 25 MG TAB PO SCH ×2 (09:16→15:06)
[2022-04-15] MEDS: Mycophenolate 250 MG CAP PO SCH (09:16)
[2022-04-15] MEDS: Tacrolimus 1 MG CAP PO SCH (09:16)
[2022-04-15 17:25] VITALS: BP 137/61; TEMP 97.9
[2022-04-16] MEDS ORDERED: Cholecalciferol 1,000 UNITS (25 MCG) TAB PO SCH (09:00)
[2022-04-17] MEDS ORDERED: Prevnar 13-Val Conj/PF 0.5 ML SYRINGE IM ONE (09:00)
[2022-04-18 18:36] LABS: Tacrolimus 1.2 ng/mL (2.0-20.0)
== END 2022-04-15 18:35 | disposition home or self-care (01) ==
LOC: 2NO 17:48 → T4-A 18:39
PROVIDERS: ADMIT Internal Medicine; ATTEND Internal Medicine
DX: I12.0 Hypertensive chronic kidney disease with stage 5 chronic kidney disease or end stage renal disease (principal); E11.22 Type 2 diabetes mellitus with diabetic chronic kidney disease; N18.6 End stage renal disease; D63.1 Anemia in chronic kidney disease; B18.2 Chronic viral hepatitis C; Z85.05 Personal history of malignant neoplasm of liver; Z87.891 Personal history of nicotine dependence; Z79.621 Long term (current) use of calcineurin inhibitor; Z79.899 Other long term (current) drug therapy; Z94.4 Liver transplant status; Z99.2 Dependence on renal dialysis
CPT/HCPCS: 36430; 80197; 83540; 83550; 85025; 85027; 86850; 86900; 86901; 86920; P9016; 36415; G0378; J7507; J7517